=== PATIENT | male | born 1995 | race Caucasian/White ===

== ENCOUNTER 2019-07-20 01:34 | Emergency (ER) | payer MEDICAID ==
[2019-07-20 01:37] VITALS: BP 153/93; PULSE 115
--- NOTE | 2019-07-20 02:12 | EDM.PDOC ---
ED HPI GENERAL MEDICAL PROBLEM - General Chief Complaint: Lower Extremity Injury/Pain Stated Complaint: post op infection Time Seen by Provider: 07/20/19 01:45 Source of Information: Reports: Patient History Limitations: Reports: No Limitations - History of Present Illness INITIAL COMMENTS - FREE TEXT/NARRATIVE: Had surgery on foot 6/ Concerned about infection Onset: Gradual Location: Reports: Lower Extremity, Right Context: Reports: Other (Surgery) - Related Data Allergies Allergy/AdvReac Type Severity Reaction Status Date / Time bee pollen Allergy Anaphylactic Verified 07/20/19 01:42 Shock Home Meds: Home Meds . [No Known Home Meds] 10/21/14 [History] Past Medical History - Past Health History Medical/Surgical History: Denies Medical/Surgical History Other Musculoskeletal History: Surgical repair of right foot fracture in 2013 Social & Family History - Tobacco Use Smoking Status *Q: Never Smoker - Caffeine Use Caffeine Use: Reports: None - Recreational Drug Use Recreational Drug Use: No Review of Systems - Review of Systems Review Of Systems: See Below Skin: Reports: Erythema ED EXAM, GENERAL - Physical Exam Exam: See Below Skin Exam: Wound/Incision, Other (Incision intact No erythema No induration No drainage) Course - Vital Signs Last Recorded V/S: Last Vital Signs Temp 99.3 F 07/20/19 01:35 Pulse 115 H 07/20/19 01:35 Resp 15 07/20/19 01:35 BP 153/93 H 07/20/19 01:35 Pulse Ox 97 07/20/19 01:35 Departure - Departure Time of Disposition: 02:15 Disposition: Home, Self-Care 01 Clinical Impression: Visit for wound check - Discharge Information *PRESCRIPTION DRUG MONITORING PROGRAM REVIEWED*: Not Applicable *COPY OF PRESCRIPTION DRUG MONITORING REPORT IN PATIENT EBONIE: Not Applicable Instructions: Wound Care, Adult Referrals: PCP,None [Primary Care Provider] - Additional Instructions: Keep wound clean Follow up in clinic Sepsis Event Note (ED) - Evaluation Sepsis Screening Result: No Definite Risk - Focused Exam Vital Signs: Vital Signs Temp Pulse Resp BP Pulse Ox 07/20/19 01:35 99.3 F 115 H 15 153/93 H 97
== END 2019-07-20 02:15 | disposition home or self-care (01) ==
LOC: LL.ED 01:34
DX: Z47.89 Encounter for other orthopedic aftercare (principal); Z91.030 Bee allergy status
CPT/HCPCS: 99282

== ENCOUNTER 2019-12-02 17:40 | Emergency (ER) | payer MEDICAID ==
[2019-12-02 17:44] VITALS: BP 159/101; PULSE 118
[2019-12-02] MEDS: Tetracaine HCl/PF 0.5% 4 ML Bottle EYELF ONE (18:05)
[2019-12-02] MEDS: Balanced Salt Solution Ophth Irrig 30 ML Bottle EYELF ONE (18:05)
--- NOTE | 2019-12-02 18:32 | EDM.PDOC ---
ED HPI GENERAL MEDICAL PROBLEM - General Chief Complaint: Eye Problems Stated Complaint: left eye foreign body Time Seen by Provider: 12/02/19 18:00 Source of Information: Reports: Patient History Limitations: Reports: No Limitations - History of Present Illness INITIAL COMMENTS - FREE TEXT/NARRATIVE: He is seen for evaluation of foreign body in his left eye. He was cutting metal this afternoon and a small piece went under his safety glasses and into his eye. He can feel the burning sensation on the medial aspect of the eye. Increased with moving the eye around. He denies any visual changes. He denies any recent illnesses. Treatments COMMERCIAL LOAN COORDINATOR: Reports: Aspirin - Related Data Allergies Allergy/AdvReac Type Severity Reaction Status Date / Time bee pollen Allergy Anaphylactic Verified 12/02/19 17:44 Shock Home Meds: Home Meds Midodrine 5 mg PO BID 12/02/19 [History] Past Medical History - Past Health History Medical/Surgical History: Denies Medical/Surgical History Other Musculoskeletal History: Surgical repair of right foot fracture in 2012 Social & Family History - Caffeine Use Caffeine Use: Reports: None ED ROS GENERAL - Review of Systems Review Of Systems: See Below Constitutional: Denies: Fever, Chills HEENT: Reports: Eye Pain Respiratory: Denies: Shortness of Breath, Cough Cardiovascular: Denies: Chest Pain, Palpitations GI/Abdominal: Denies: Abdominal Pain, Nausea, Vomiting Musculoskeletal: Reports: No Symptoms Skin: Reports: No Symptoms Neurological: Denies: Confusion, Dizziness, Headache Psychiatric: Denies: Anxiety, Depression ED EXAM GENERAL W FULL EYE - Physical Exam Exam: See Below Text/Narrative:: Left eye: There is an apparent metallic object at 9:00 just inside the edge of the iris. No other foreign bodies seen. With fluorescein staining he does get observed in the same area. Pupils are unremarkable. No foreign body under the lids. Extraocular muscles are intact. Exam Limited By: No Limitations General Appearance: Alert, WD/WN, No Apparent Distress Course - Vital Signs Last Recorded V/S: Last Vital Signs Temp 36.8 C 12/02/19 17:40 Pulse 118 H 12/02/19 17:40 Resp 20 12/02/19 17:40 BP 159/101 H 12/02/19 17:40 Pulse Ox 100 12/02/19 17:40 - Orders/Labs/Meds Meds: Medications Discontinued Medications Generic Name Dose Route Start Last Admin Trade Name Chichi PRN Reason Stop Dose Admin Balanced Salt Solution 30 ml 12/02/19 18:01 12/02/19 18:05 Eye Stream Eye Rinse EYELF 12/02/19 18:02 10 ml ONETIME ONE Administration Erythromycin 1 gm 12/02/19 19:06 Erythromycin 0.5% Ophth Oint EYEBOTH 12/02/19 19:07 ONETIME ONE Tetracaine HCl 2 ml 12/02/19 18:01 12/02/19 18:05 Tetracaine 0.5% Steri-Unit Cathy EYELF 12/02/19 18:02 1 drop ASDIRECTED ONE Administration - Re-Assessments/Exams Free Text/Narrative Re-Assessment/Exam: 12/02/19 18:31 Tetracaine drops were instilled in the eye followed a fluorescein stain which shows uptake at approximately 9:00 and on the edge of the iris. Foreign body was noted in the same area. No other foreign bodies noted. Attempted to remove the foreign body with a Q-tip but was unsuccessful. 2 more Alcaine drops were instilled and attempted to remove the foreign body with a #20 needle, but was again unsuccessful. We did also try irrigating the eye with an eye solution. At that point seem prudent to talk with an singe machine operator. 12/02/19 19:[address] Gore, material handler floorperson singe machine operator in [place]. She will see the patient tomorrow morning. He is instructed to go to the [place] emergency room and explained that he was referred to see Dr. Gore and she will meet him there. I put some erythromycin gel in the eye and he can repeat that before going to bed. Tylenol or Advil as needed for pain. Departure - Departure Time of Disposition: 19:12 Disposition: Home, Self-Care 01 Clinical Impression: Foreign body of left eye, Corneal abrasion - Discharge Information Instructions: Eye Foreign Body, [id number], Corneal Abrasion Referrals: PCP,None [Primary Care Provider] - Forms: ED Department Discharge Additional Instructions: Apply erythromycin gel in the eye before bed. Go to the emergency department at [place] in [place] tomorrow morning and tell them you are there to see Dr. Gore in ophthalmology and she will then meet you at the emergency department. Tylenol and/or Advil as needed for pain. Sepsis Event Note (ED) - Evaluation Sepsis Screening Result: No Definite Risk - Focused Exam Vital Signs: Vital Signs Temp Pulse Resp BP Pulse Ox 12/02/19 17:40 36.8 C 118 H 20 159/101 H 100 - Problem List & Annotations (1) Corneal abrasion SNOMED Code(s): 15874808 Code(s): S05.00XA - INJ CONJUNCTIVA AND CORNEAL ABRASION W/O FB, UNSP EYE, INIT Status: Acute Current Visit: Yes (2) Foreign body of left eye SNOMED Code(s): 43840371 Code(s): T15.92XA - FOREIGN BODY ON EXTERNAL EYE, PART UNSP, LEFT EYE, INIT Status: Acute Current Visit: Yes - Assessment/Plan Plan: Apply erythromycin gel in the eye before bed. Go to the emergency department at [facility] tomorrow morning and tell them you are there to see Dr. Gore in ophthalmology and she will then meet you at the emergency department. Tylenol and/or Advil as needed for pain.
[2019-12-02] MEDS: Erythromycin Base 0.5% Ophth Oint 3.5 GM Tube EYEBOTH ONE (19:11)
== END 2019-12-02 18:30 | disposition home or self-care (01) ==
LOC: LL.ED 17:40
DX: T15.02XA Foreign body in cornea, left eye, initial encounter (principal); Z91.030 Bee allergy status; Z79.899 Other long term (current) drug therapy
CPT/HCPCS: 99283; A9270-GY

== ENCOUNTER 2020-06-08 21:14 | Emergency (ER) | payer MEDICAID ==
--- NOTE | 2020-06-08 21:20 | EDM.PDOC ---
ED HPI GENERAL MEDICAL PROBLEM - General Chief Complaint: ENT Problem Stated Complaint: tooth pain Time Seen by Provider: 06/08/20 21:19 Source of Information: Reports: Patient, Old Records ([facility] EMR. No paper hospital chart available.) History Limitations: Reports: No Limitations - History of Present Illness INITIAL COMMENTS - FREE TEXT/NARRATIVE: The patient was brought to the emergency room via private automobile by a friend for evaluation of 11/17 left lower tooth pain with symptoms starting about 12:30 PM this afternoon. Patient did take 650 mg of aspirin at that time with no improvement in symptoms, including with OTC Orajel use. No history of recent injury, although he has chipped the same tooth in the past. No recent history of abdominal pain, heartburn, nausea, diarrhea, melena, gross hematochezia, or any food intolerance, including fatty foods, etc.. The patient also denies any recent fever, cough, wheezing, dyspnea, etc.. Onset: Today, Gradual Onset Date: 06/08/20 Onset Time: 12:30 Duration: Constant, Getting Worse Location: Reports: Other (Left lower tooth as above) Quality: Reports: Same as Previous Episode, Throbbing Severity: Severe Improves with: Reports: None Worsens with: Reports: None Context: Reports: Other (As above). Denies: Sick Contact, Trauma Associated Symptoms: Denies: Confusion, Chest Pain, Cough, Diaphoresis, Fever/Chills, Headaches, Loss of Appetite, Malaise, Nausea/Vomiting, Rash, Seizure, Shortness of Breath, Syncope, Weakness Treatments PENSIONS RETIREMENT PLAN SPECIALIST: Reports: Aspirin, Other Medication(s) Left Lower Posterior Tooth/Teeth Pain Score (Numeric/FACES): 10 - Related Data Allergies Allergy/AdvReac Type Severity Reaction Status Date / Time bee pollen Allergy Anaphylactic Verified 06/08/20 21:16 Shock Home Meds: Home Meds Amoxicillin/Potassium Clav [Augmentin 875-125 Tablet] 1 each PO BIDMEALS #6 tablet 06/08/20 [Rx] Midodrine 5 mg BID 06/08/20 [History] Past Medical History Cardiovascular History: Reports: Aneurysm, Syncope, Other (See Below) Other Cardiovascular History: 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 Musculoskeletal History: Reports: Fracture Other Musculoskeletal History: Right foot fracture in 2013. - Past Surgical History Cardiovascular Surgical History: Reports: Vascular Surgery, Other (See Below) Other Cardiovascular Surgeries/Procedures: Aneurysm repair of the left foot in 2019. Musculoskeletal Surgical History: Reports: ORIF, Other (See Below) Other Musculoskeletal Surgeries/Procedures:: ORIF of right foot fracture in 2012. Social & Family History - Tobacco Use Tobacco Use Status *Q: Former Tobacco User Tobacco Use Within Last Twelve Months: No Years of Tobacco use: 2 Packs/Tins Daily: 0.5 Packs/Tins Daily Comment: Smoked between ages 17 and 18. Used Tobacco, but Quit: Yes Smoking Cessation Information Provided To Patient: No Second Hand Smoke Exposure: Yes Source of Second Hand Smoke Exposure: Mother smokes Second Hand Smoke Education Provided: Yes - Caffeine Use Caffeine Use: Reports: None - Living Situation & Occupation Living situation: Reports: with Family (Mother) Occupation: Disabled (Secondary to recurrent syncope and left foot aneurysm.) ED ROS GENERAL - Review of Systems Review Of Systems: Comprehensive ROS is negative, except as noted in HPI. ED EXAM, GENERAL - Physical Exam Exam: See Below Exam Limited By: No Limitations General Appearance: Alert, WD/WN, No Apparent Distress Eye Exam: Bilateral Eye: EOMI, Normal Inspection (No vertigo or nystagmus), PERRL Ears: Normal External Exam, Normal Canal, Hearing Grossly Normal, Normal TMs Nose: Normal Inspection, Normal Mucosa, No Blood Throat/Mouth: Normal Lips, Normal Gums. No: Normal Teeth (Posterior chipped teeth of the last bilateral lower premolars with beginning caries but no drainage, significant abscess, etc.), Normal Oropharynx, Normal Voice, No Airway Compromise, Dysphagia, Inflammation, Perioral Cyanosis Head: Atraumatic, Normocephalic. No: Facial Swelling, Facial Tenderness, Sinus Tenderness Neck: Normal Inspection, Supple, Non-Tender, Full Range of Motion. No: Lymphadenopathy (L), Lymphadenopathy (R), Thyromegaly Respiratory/Chest: No Respiratory Distress, Lungs Clear, Normal Breath Sounds, No Accessory Muscle Use, Chest Non-Tender. No: Pleural Rub, Retractions Cardiovascular: Normal Peripheral Pulses, Regular Rate, Rhythm, No Edema, No Gallop, No JVD, No Murmur, No Rub. No: Gallop/S3, Gallop/S4 (Is rated Wednesday tinea), Friction Rub Peripheral Pulses: 2+: Radial (L), Radial (R) GI/Abdominal: Normal Bowel Sounds, Soft, Non-Tender, No Organomegaly, No Distention, No Abnormal Bruit, No Mass, Pelvis Stable. No: Guarding (Male) Exam: Deferred Rectal (Males) Exam: Deferred Back Exam: Normal Inspection, Full Range of Motion. No: CVA Tenderness (L), CVA Tenderness (R) Extremities: Normal Inspection, Normal Range of Motion, Non-Tender, No Pedal Edema, Normal Capillary Refill. No: Ave's Sign Neurological: Alert, Oriented, CN II-XII Intact, Normal Cognition, Normal Gait, No Motor/Sensory Deficits Psychiatric: Normal Affect, Normal Mood Skin Exam: Warm, Dry, Intact, Normal Color, No Rash, Stud(s) (Left auricle), Tattoo(s) (Multiple). No: Diaphoretic Lymphatic: No Adenopathy Course - Vital Signs Last Recorded V/S: Last Vital Signs Temp 37.6 C 06/08/20 21:16 Pulse 104 H 06/08/20 21:37 Resp 16 06/08/20 21:37 BP 169/102 H 06/08/20 21:37 Pulse Ox 96 06/08/20 21:37 Vital Signs - 24 hr 06/08/20 06/08/20 21:16 21:37 Temperature [ 37.6 C Temporal] Pulse, 106 H 104 H Peripheral [ Pulse Oximetry] Respiratory 18 16 Rate Blood Pressure 158/105 H 169/102 H [Right Upper Arm] O2 Sat by Pulse 98 96 Oximetry - Orders/Labs/Meds Orders: Active Orders 24 hr Category Date Time Status Obtain Past Medical Record [OM.PC] Routine Oth 06/08/20 21:20 Active Labs: None Meds: Medications Discontinued Medications Generic Name Dose Route Start Last Admin Trade Name Freq PRN Reason Stop Dose Admin Ceftriaxone Sodium 1 gm 06/08/20 21:20 06/08/20 21:30 Ceftriaxone 1 Gm Vial IM 06/08/20 21:21 1 gm ONETIME ONE Administration Ketorolac Tromethamine 60 mg 06/08/20 21:20 06/08/20 21:30 Ketorolac 60 Mg/2 Ml Sdv IM 06/08/20 21:21 60 mg ONETIME ONE Administration Lidocaine HCl 2.1 ml 06/08/20 21:20 06/08/20 21:31 Lidocaine 1% 5 Ml Sdv INJECT 06/08/20 21:21 2.1 ml ONETIME ONE Administration - Radiology Interpretation Free Text/Narrative:: None Departure - Departure Time of Disposition: 21:49 Disposition: Home, Self-Care 01 Condition: Good Clinical Impression: Caries, Elevated blood pressure reading, Tobacco abuse counseling Syncope Qualifiers: Syncope type: unspecified Qualified Code(s): R55 - Syncope and collapse - Discharge Information *PRESCRIPTION DRUG MONITORING PROGRAM REVIEWED*: Not Applicable *COPY OF PRESCRIPTION DRUG MONITORING REPORT IN PATIENT EBONIE: Not Applicable Prescriptions: Amoxicillin/Potassium Clav [Augmentin 875-125 Tablet] 1 each PO BIDMEALS #6 tablet Instructions: Steps to Quit Smoking, Eehh-es-Agty, Health Risks of Smoking, Ceftriaxone Injection, Diet and Dental Disease, Amoxicillin; Clavulanic Acid Extended-Release Tablets Forms: ED Department Discharge Additional Instructions: 1. Follow-up with your dentist SHERI on 06/10/2020 for further treatment evaluation. Notify him of current Augmentin therapy. 2. Start Augmentin tomorrow morning and take with food. Diarrhea precautions with this medication. 3. Listerine gargles four times per day, after meals and at bedtime, with additional Chloroseptic lozenges or spray as needed for 10 days and/or until symptoms resolve. 4. Tylenol 650 mg by mouth every 4 hours and/or OTC ibuprofen 2-3 tabs by mouth every 6 hours with food as directed./needed. You may stagger these medications for 48-72 hours only, which essentially means that you are receiving a pain medication about every 2 hours. Next dose of ibuprofen in 6 hours as needed secondary to medications given in the emergency room 5. Continue to use Orajel as previously recommended. 6. Stop all tobacco exposure SHERI as directed with counselling, information, etc. given at discharge. 7. Immediately after this visit verify that your cellular telephone's voicemail has been activated and is empty. Also verify that your home telephone's answering machine is operating properly and has space to receive messages. Note that it is sometimes necessary for us to be able to contact you at a later date to discuss your medical care. 8. Please remember that we are ALWAYS here for you and want to answer any questions you may have. Feel free to call the hospital any time and we call you back SEHRI. 9. Continue to observe your blood pressures closely through your regular provider. Sepsis Event Note (ED) - Focused Exam Vital Signs: Vital Signs Temp Pulse Resp BP Pulse Ox 06/08/20 21:37 104 H 16 169/102 H 96 06/08/20 21:16 37.6 C 106 H 18 158/105 H 98 - Problem List & Annotations (1) Caries SNOMED Code(s): 35539508 Code(s): K02.9 - DENTAL CARIES, UNSPECIFIED Status: Acute Priority: High Onset Date: 06/08/20 Annotation/Comment:: The patient actually had tears in his both lower last premolar teeth. Symptomatic relief as per discharge instructions. Close follow-up by his dentist as per discharge instructions. IM Rocephin given in the emergency room with initiation of Augmentin therapy tomorrow with only an emergency room prescription provided. (2) Syncope SNOMED Code(s): 677135179 Code(s): R55 - SYNCOPE AND COLLAPSE Status: Chronic Priority: Medium Annotation/Comment:: History of recurrent syncope of unknown etiology with secondary disability. Continue further work-up by regular providers. Qualifiers: Syncope type: unspecified Qualified Code(s): R55 - Syncope and collapse (3) Tobacco abuse counseling SNOMED Code(s): 449971480, 813079517, 578850665 Code(s): Z71.6 - TOBACCO ABUSE COUNSELING Status: Chronic Priority: Medium Annotation/Comment:: Tobacco cessation information provided for the patient's mother. (4) Elevated blood pressure reading SNOMED Code(s): 37773000 Code(s): R03.0 - ELEVATED BLOOD-PRESSURE READING, W/O DIAGNOSIS OF HTN Status: Acute Priority: Medium Onset Date: 06/08/20 Annotation/Comment:: Likely secondary to current discomfort and pain. No previous history of hypertension, although possible developing hypertension at this time. Continue to observe closely by his regular provider. - Problem List Review Problem List Initiated/Reviewed/Updated: Yes - My Orders Last 24 Hours: My Active Orders 06/08/20 21:20 Obtain Past Medical Record [OM.PC] Routine - Assessment/Plan Last 24 Hours: My Active Orders 06/08/20 21:20 Obtain Past Medical Record [OM.PC] Routine Assessment:: As above Plan: As above. Extensive precautions were given to the patient, who is in agreement with the treatment plan. See Patient Instructions for further treatment and plan.
[2020-06-08] MEDS: cefTRIAXone 1 GM Vial IM ONE (21:30)
[2020-06-08] MEDS: Ketorolac 60 MG/2 ML SDV IM ONE (21:30)
[2020-06-08 21:38] VITALS: BP 169/102; PULSE 104
== END 2020-06-08 21:49 | disposition home or self-care (01) ==
LOC: LL.ED 21:14
DX: K02.9 Dental caries, unspecified (principal); R55 Syncope and collapse; Z71.6 Tobacco abuse counseling; R03.0 Elevated blood-pressure reading, without diagnosis of hypertension; Z87.891 Personal history of nicotine dependence; Z91.030 Bee allergy status
CPT/HCPCS: 96372; 99283; 99284; J0696; J1885